=== PATIENT | female | born 1955 | race Caucasian/White ===

== ENCOUNTER 2019-04-19 15:54 | Emergency (ER) | payer MEDICAID ==
[~2019-04-19] VITALS: Ht 157.5 cm; Wt 60.0 kg
== END 2019-04-19 17:25 | disposition home or self-care (01) ==
LOC: ER 15:55
DX: M79.671 Pain in right foot (principal); M79.672 Pain in left foot; Z59.0 Homelessness
CPT/HCPCS: 99283

== ENCOUNTER 2019-04-20 01:23 | Emergency (ER) | payer MEDICAID ==
[~2019-04-20] VITALS: Ht 165.1 cm; Wt 70.0 kg
[2019-04-20 01:35] VITALS: BP 179/98
== END 2019-04-20 03:13 | disposition home or self-care (01) ==
LOC: ER 01:23
DX: L85.3 Xerosis cutis (principal); M79.672 Pain in left foot; Z56.0 Unemployment, unspecified; Z59.0 Homelessness
CPT/HCPCS: 99283